=== PATIENT | female | born 1995 | race Two or more races ===

== ENCOUNTER 2019-09-20 20:48 | Emergency (ER) | payer SELFPAY ==
[2019-09-20] MEDS ORDERED: ACETAMINOPHEN 325 MG TABLET PO ONE (23:38)
--- NOTE | 2019-09-20 23:41 | ER Document Report ---
ED Medical Screen (RME) - General Chief Complaint: Hand Injury Stated Complaint: RIGHT HAND INJURY Time Seen by Provider: 09/20/19 23:37 Mode of Arrival: Ambulatory Information source: Patient Notes: Otherwise healthy 23-year-old female presenting to the emergency department chief complaint of right hand pain. Patient reports she punched a wall just prior to arrival. Patient did not bother to take any Tylenol or ibuprofen prior to coming to the emergency department for evaluation. Exam: Slight swelling noted, ecchymosis and abrasions noted over the fourth fifth metacarpal area. Cap refill less than 3 seconds, normal sensation distally. I have greeted and performed a rapid initial assessment of this patient. A comprehensive ED assessment and evaluation of the patient, analysis of test results and completion of the medical decision making process will be conducted by additional ED providers. I have specifically instructed the patient or family members with the patient to immediately return to any nursing staff should anything change in the patient's condition or with their chief complaint. TRAVEL OUTSIDE OF THE [place] IN LAST 30 DAYS: No Physical Exam - Vital signs Vitals: Temp Pulse Resp BP Pulse Ox 99.4 F 106 H 16 124/72 97 09/20/19 20:58 09/20/19 20:58 09/20/19 20:58 09/20/19 20:58 09/20/19 20:58 Course - Vital Signs Vital signs: Temp Pulse Resp BP Pulse Ox 99.4 F 106 H 16 124/72 97 09/20/19 20:58 09/20/19 20:58 09/20/19 20:58 09/20/19 20:58 09/20/19 20:58
--- NOTE | 2019-09-21 00:12 | RADIOLOGY REPORT (SQ) ---
EXAM DESCRIPTION: XR HAND 3 OR MORE VIEWS COMPLETED DATE/TME: 09/20/2019 23:37 CLINICAL HISTORY: 23 years, Female, bone pain COMPARISON: None. NUMBER OF VIEWS: 3 TECHNIQUE: 3 view right hand LIMITATIONS: None. FINDINGS: Negative for fracture or dislocation. Soft tissues are unremarkable IMPRESSION: Negative exam copyright 2011 [employer]- All Rights Reserved
--- NOTE | 2019-09-21 00:31 | ER Document Report ---
HPI - HPI Time Seen by Provider: 09/20/19 23:37 Pain Level: 5 Notes: Otherwise healthy 23-year-old female presenting to the emergency department with complaints of right hand pain. Patient reports she punched a fixed object a few hours prior to arrival. She has not taken any medications for this. - REPRODUCTIVE LMP: current Reproductive: DENIES: : Past Medical History - General Information source: Patient - Social History Smoking Status: Former Smoker Family History: Reviewed & Not Pertinent Patient has suicidal ideation: No Patient has homicidal ideation: No - Medical History Medical History: Negative Surgical Hx: Negative Vertical Provider Document - CONSTITUTIONAL Notes: PHYSICAL EXAMINATION: GENERAL: Well-appearing, well-nourished and in no acute distress. HEAD: Atraumatic, normocephalic. EYES: Pupils equal round extraocular movements intact, conjunctiva are normal. ENT: Nares patent NECK: Normal range of motion LUNGS: No respiratory distress Musculoskeletal: Normal range of motion, swelling and ecchymosis noted to right hand over the fourth and fifth metacarpals. Strong radial pulse, cap refill less than 3 seconds. NEUROLOGICAL: Normal speech, normal gait. PSYCH: Normal mood, normal affect. SKIN: Warm, Dry, normal turgor, no rashes or lesions noted. - INFECTION CONTROL TRAVEL OUTSIDE OF THE [place] IN LAST 30 DAYS: No Course - Re-evaluation Re-evalutation: X-ray negative for any fracture. Patient will be discharged home in stable condition. Patient encouraged to take ibuprofen, ice and elevate the extremity. Patient verbalized understanding and agreement with this plan. - Vital Signs Vital signs: Temp Pulse Resp BP Pulse Ox 99.4 F 106 H 16 124/72 97 09/20/19 20:58 09/20/19 20:58 09/20/19 20:58 09/20/19 20:58 09/20/19 20:58 Discharge - Discharge Clinical Impression: Contusion of right hand Qualifiers: Encounter type: initial encounter Qualified Code(s): S60.221A - Contusion of right hand, initial encounter Condition: Stable Disposition: HOME, SELF-CARE Additional Instructions: Contusion Your injury has resulted in a contusion -- a crushing of the deep tissues. No injury to important structures was detected during the physician's exam. Contusions vary in the amount of pain they cause, and in the length of time required for healing. Typically, the area will become bruised, and will remain painful to touch for two or three weeks. However, most patients are back to working and playing within a few days. After the initial period of rest and cold-packs, your symptoms (together with the doctor's recommendations) will determine how rapidly you can get back to full activity. Usually this means "do what feels okay, but don't do things that hurt." If re-examination was recommended, it's important to follow up as instructed. Call the doctor or return any time if pain increases, if swelling becomes severe, if you develop numbness or weakness in an injured extremity, or if any other alarming symptoms occur. Ice & Elevation Apply ice packs frequently against the painful area. Many different schedules are recommended, such as "20 minutes on, 20 minutes off" or "one hour ice, two hours rest." If you need to work, you may need to go longer between ice treatments. You should plan to have the area ice packed AT LEAST one-fourth of the time. The ice should be applied over the wrap, tape, or splint, or over a layer of cloth -- not directly against the skin. Some ice bags have a built-in cloth and can be put directly on the skin. Your injured part should be elevated as much as possible over the next 48 hours. Try to keep the injury above the level of the heart. Avoid use of the injured area. Elevation and rest will decrease the swelling. Ibuprofen Ibuprofen is an excellent, safe drug for pain control. In addition, it has potent antiinflammatory effects which are beneficial, especially in the tr eatment of injuries, arthritis, or tendonitis. It's best to take ibuprofen with food. Persons with ulcer disease or allergy to aspirin should notify their physician of this before taking ibuprofen. Take the medication exactly as prescribed. Don't take additional doses unless instructed to do so by your doctor. If you develop wheezing, shortness of breath, hives, faintness, stomach pain, vomiting, or dark black stools, return for re-evaluation at once. The x-rays were negative for any fracture or dislocation. Please take ibuprofen [id number] as directed to help with pain and inflammation.
[2019-09-21 06:37] VITALS: BP 113/73
== END 2019-09-21 01:00 | disposition home or self-care (01) ==
LOC: ER 20:48
DX: S60.221A Contusion of right hand, initial encounter (principal); W22.09XA Striking against other stationary object, initial encounter
CPT/HCPCS: 99283

== ENCOUNTER 2020-04-04 21:55 | Emergency (ER) | payer MEDICAID, OTHER ==
[2020-04-04 22:05] VITALS: BP 127/73
--- NOTE | 2020-04-04 22:27 | ER Document Report ---
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 States it is so swollen she is unable to wear her hearing aid in the right ear. She denies any recent swimming or flying. No medications for symptoms. No fevers. Associated Symptoms: None Exacerbated by: Denies Relieved by: Denies Similar symptoms previously: No Recently seen / treated by doctor: No - ROS Systems Reviewed and Negative: Yes All other systems reviewed and negative - CONSTITUTIONAL Constitutional: DENIES: Fever - EENT EENT: REPORTS: Ear Pain. DENIES: Sore Throat, Nasal Drainage-Clear, Nasal Drainage-Purulent, Congestion - NEURO Neurology: DENIES: Headache - RESPIRATORY Respiratory: DENIES: Trouble Breathing - GASTROINTESTINAL Gastrointestinal: DENIES: Abdominal Pain, Nausea, Patient vomiting - REPRODUCTIVE Reproductive: DENIES: : - DERM Skin Color: Normal, [place] Skin Problems: None Past Medical History - General Information source: Patient - Social History Smoking Status: Never Smoker Frequency of alcohol use: None Drug Abuse: None Family History: Reviewed & Not Pertinent Vertical Provider Document - CONSTITUTIONAL Agree With Documented VS: Yes Exam Limitations: No Limitations General Appearance: Mild Distress - INFECTION CONTROL TRAVEL OUTSIDE OF THE [place] IN LAST 30 DAYS: No - HEENT HEENT: Atraumatic, Normocephalic, Tympanic Membrane Red, Tympanic Membrane Bulging - Right tympanic membrane is erythematous and bulging. Right outer ear canal with erythema and swelling no discharge noted. Left tympanic membrane intact without erythema or bulging. Left outer ear canal without erythema or swelling.. negative: Pharyngeal Exudate, Pharyngeal Tenderness, Pharyngeal Erythema - NECK Neck: Normal Inspection, Supple, Thyroid Normal. negative: Lymphadenopathy- Right - RESPIRATORY Respiratory: Breath Sounds Normal, No Respiratory Distress - CARDIOVASCULAR Cardiovascular: Regular Rate, Regular Rhythm, No Murmur - MUSCULOSKELETAL/EXTREMETIES Musculoskeletal/Extremeties: FROM - NEURO Level of Consciousness: Awake, Alert - DERM Integumentary: Warm, Dry, No Rash Course - Re-evaluation Re-evalutation: 04/04/20 22:35 Reviewed diagnosis with patient. Counseled to take antibiotics and use eardrops as prescribed. Recheck with a primary care physician in 1 week. On-call physician was provided. Can take Tylenol and or Motrin as needed for pain. Patient was given strict return to the emergency room guidelines. Return for any new or worsening symptoms. All questions were answered. Patient verbalized understanding and agrees with plan of care. - Vital Signs Vital signs: Temp Pulse Resp BP Pulse Ox 99.4 F 104 H 16 127/73 H 97 04/04/20 22:03 04/04/20 22:03 04/04/20 22:03 04/04/20 22:03 04/04/20 22:03 Discharge - Discharge Clinical Impression: Right otitis media Qualifiers: Otitis media type: unspecified Qualified Code(s): H66.91 - Otitis media, unspecified, right ear Right otitis externa Qualifiers: Otitis externa type: unspecified type Chronicity: acute Qualified Code(s): H60.501 - Unspecified acute noninfective otitis externa, right ear Condition: Stable Disposition: HOME, SELF-CARE Instructions: Use of Ear Drops ([facility]), Otitis Externa ([facility]), Otitis Media ([facility]) Additional Instructions: Use eardrops and take oral antibiotics as prescribed. Tylenol and or Motrin as needed for pain. Follow-up with a primary care physician for recheck in 1 week. Return for any new or worsening symptoms. Prescriptions: Amoxicillin 1 tab PO TID #30 tab Neomy Sulf/Polymyx B Sulf/Hc [Cortisporin Otic Susp] 4 drop RT_EAR QID 7 Days #1 bottle Referrals: FRANK CASTRO MD [COMMUNITY BASED STAFF] - Follow up in 1 week (Call for recheck appointment in 1 week.)
== END 2020-04-04 22:40 | disposition home or self-care (01) ==
LOC: ER 21:55
DX: H66.91 Otitis media, unspecified, right ear (principal); H60.501 Unspecified acute noninfective otitis externa, right ear; H92.01 Otalgia, right ear
CPT/HCPCS: 99282

== ENCOUNTER 2020-05-28 10:18 | Emergency (ER) | payer MEDICAID ==
[2020-05-28 10:24] VITALS: BP 121/74
[2020-05-28] MEDS ORDERED: LIDOCAINE 2% VISCOUS SOLN 15 ML UDCUP PO ONE (10:30)
[2020-05-28] MEDS ORDERED: PENICILLIN V POTASSIUM 500 MG TABLET PO ONE (10:30)
--- NOTE | 2020-05-28 10:36 | ER Document Report ---
HPI - HPI Patient complains to provider of: tongue injury Time Seen by Provider: 05/28/20 10:30 Onset: Yesterday Onset/Duration: Worse Quality of pain: Achy Pain Level: 4 Context: Patient states she had dental work performed yesterday and the dentist accidentally slipped injuring her tongue. Patient complains of tender wound to the lateral side of her tongue. Patient without any fever. Associated Symptoms: Other - Mouth pain. denies: Fever Exacerbated by: Food Relieved by: Denies Similar symptoms previously: No Recently seen / treated by doctor: Yes - ROS ROS below otherwise negative: Yes Systems Reviewed and Negative: Yes All other systems reviewed and negative - CONSTITUTIONAL Constitutional: DENIES: Fever, Chills - EENT Notes: Wound to tongue - GASTROINTESTINAL Gastrointestinal: DENIES: Nausea, Patient vomiting - REPRODUCTIVE Reproductive: DENIES: : - DERM Skin Color: Normal Past Medical History - General Information source: Patient - Social History Smoking Status: Never Smoker Frequency of alcohol use: None Drug Abuse: None Occupation: Foodservice Family History: Reviewed & Not Pertinent - Medical History Medical History: Negative Surgical Hx: Negative Vertical Provider Document - CONSTITUTIONAL Agree With Documented VS: Yes Exam Limitations: No Limitations General Appearance: WD/WN, No Apparent Distress - INFECTION CONTROL TRAVEL OUTSIDE OF THE [place] IN LAST 30 DAYS: No - HEENT HEENT: Atraumatic, Normocephalic Mouth Diagram: 1 - Wound to lateral side of tongue, no obvious swelling or purulent drainage, areas of skin white in appearance - NECK Neck: Normal Inspection, Supple. negative: Lymphadenopathy-Left, Lymphadenopathy-Right - RESPIRATORY Respiratory: Breath Sounds Normal, No Respiratory Distress - CARDIOVASCULAR Cardiovascular: Regular Rate, Regular Rhythm - BACK Back: Normal Inspection - MUSCULOSKELETAL/EXTREMETIES Musculoskeletal/Extremeties: MAEW - NEURO Level of Consciousness: Awake, Alert, Appropriate Motor/Sensory: No Motor Deficit - DERM Integumentary: Warm, Dry Course - Re-evaluation Re-evalutation: 05/28/20 10:36 Patient with oral injury to the lateral side of her tongue. No potential airway compromise. Wound does not require suturing at this time. Encouraged good oral hygiene and diet modification. Discussed worsening symptoms that patient should return immediately for. Patient verbalized understanding and is agreeable with discharge plan of care. - Vital Signs Vital signs: Temp Pulse Resp BP Pulse Ox 98.2 F 97 18 121/74 97 05/28/20 10:23 05/28/20 10:23 05/28/20 10:23 05/28/20 10:23 05/28/20 10:23 Discharge - Discharge Clinical Impression: Tongue sore Condition: Stable Disposition: HOME, SELF-CARE Instructions: Oral Laceration, Not Sutured ([facility]), Penicillin V K ([facility]) Additional Instructions: Return immediately for any new or worsening symptoms Followup with your primary care provider, call tomorrow to make a followup appointment Rinse mouth out after meals Use Orajel or other over the counter topical anesthetic as needed to help with pain symptoms Prescriptions: Naproxen [Naprosyn 250 Nmg Tablet] 1 tab PO BID #14 tablet Penicillin V Potassium [Penicillin Vk 500 mg Tablet] 500 mg PO BID #20 tablet Forms: Return to Work Referrals: [facility] [Provider Group] - Follow up as needed [facility] [Provider Group] - Follow up as needed
== END 2020-05-28 10:46 | disposition home or self-care (01) ==
LOC: ER 10:18
DX: S09.93XA Unspecified injury of face, initial encounter (principal); W22.8XXA Striking against or struck by other objects, initial encounter; Y92.531 Health care provider office as the place of occurrence of the external cause
CPT/HCPCS: 99283; J3490 ×2

== ENCOUNTER 2020-06-16 15:24 | Emergency (ER) | payer MEDICAID ==
--- NOTE | 2020-06-16 15:52 | ER Document Report ---
HPI - HPI Patient complains to provider of: Left ear pain, right hand pain Time Seen by Provider: 06/16/20 15:42 Pain Level: 3 Context: 24-year-old female presents to the emergency room complaining of left ear pain that started yesterday. States she had a tooth pulled a month ago in the left upper posterior molar states she was on antibiotics at that time and is not sure if she still having referred pain from the dental extraction or if she has an ear infection. She denies any recent swimming or flying. Not taking anything for the pain. Patient also complaining of right hand pain after punching a wall 2 days ago. Patient states she fractured her hand about a year ago. Has not taken any pain medication for hand. Patient is right-handed. She denies any chance of . Associated Symptoms: None Exacerbated by: Movement Relieved by: Remaining still Similar symptoms previously: Yes - Previous right hand fracture a year ago Recently seen / treated by doctor: No - ROS Systems Reviewed and Negative: Yes All other systems reviewed and negative - CONSTITUTIONAL Constitutional: DENIES: Fever - EENT EENT: REPORTS: Ear Pain - NEURO Neurology: DENIES: Weakness - REPRODUCTIVE LMP: [id number] Reproductive: DENIES: : - MUSCULOSKELETAL Musculoskeletal: REPORTS: Extremity pain - DERM Skin Color: Normal Skin Problems: None Past Medical History - General Information source: Patient - Social History Smoking Status: Never Smoker Chew tobacco use (# tins/day): No Drug Abuse: None Family History: Reviewed & Not Pertinent Patient has homicidal ideation: No Vertical Provider Document - CONSTITUTIONAL Agree With Documented VS: Yes Exam Limitations: No Limitations General Appearance: Mild Distress - INFECTION CONTROL TRAVEL OUTSIDE OF THE [place] IN LAST 30 DAYS: No - HEENT HEENT: Atraumatic, Normocephalic, Tympanic Membrane Red, Tympanic Membrane Bulging - Left tympanic membrane erythematous and bulging. Left outer ear canal without erythema swelling. Right tympanic membrane is intact. Right outer ear canal without erythema or swelling. Left upper posterior gum without erythema or swelling. Nontender to palpation. There is no abscess noted. - NECK Neck: Normal Inspection, Supple, Thyroid Normal - RESPIRATORY Respiratory: Breath Sounds Normal, No Respiratory Distress, Chest Non-Tender - CARDIOVASCULAR Cardiovascular: Regular Rate, Regular Rhythm, No Murmur - MUSCULOSKELETAL/EXTREMETIES Musculoskeletal/Extremeties: FROM, Tender - Tenderness over the knuckle of the right index finger. Ecchymosis noted. No obvious deformity palpated noted senior ui ux developer strength equal and adequate bilaterally. - NEURO Level of Consciousness: Awake, Alert, Appropriate Motor/Sensory: No Motor Deficit, No Sensory Deficit Notes: Positive right radial pulse. Capillary refill less than 3 seconds. Normal sensation to touch. - DERM Integumentary: Warm, Dry, No Rash Course - Re-evaluation Re-evalutation: 06/16/20 16:44 Reviewed negative x-ray results with patient. Discussed the positive findings of a left otitis media. Will be discharged home on antibiotics. Can take Tylenol and or Motrin as needed for her right hand and left ear pain. Outpatient follow-up with a primary care physician if not improving in 2 to 3 days. On-call physician was provided. Patient was given strict return to the emergency room guidelines. Return for any new or worsening symptoms. All questions were answered. Patient verbalized understanding and agrees with plan of care. 06/16/20 18:04 - Diagnostic Test Radiology reviewed: Reports reviewed Discharge - Discharge Clinical Impression: Left otitis media Qualifiers: Otitis media type: unspecified Qualified Code(s): H66.92 - Otitis media, unspecified, left ear Contusion of right hand Qualifiers: Encounter type: initial encounter Qualified Code(s): S60.221A - Contusion of right hand, initial encounter Condition: Stable Disposition: HOME, SELF-CARE Instructions: Contusion ([facility]), Otitis Media ([facility]) Additional Instructions: Antibiotics as prescribed. Tylenol and/or Motrin as needed for pain. Outpatient follow-up with a primary care physician if not improving in 2 to 3 days. Return to the emergency room for any new or worsening symptoms. Prescriptions: Amoxicillin 1 tab PO TID #30 tab Referrals: ROHINI RICHARDSON MD [ACTIVE STAFF] - Follow up as needed
--- NOTE | 2020-06-16 16:34 | RADIOLOGY REPORT (SQ) ---
EXAM DESCRIPTION: HAND RIGHT 3 VIEWS IMAGES COMPLETED DATE/TIME: 06/16/2020 4:25 pm REASON FOR STUDY: The patient punched a wall Jeyson now with hand pain. COMPARISON: 09/20/2019 EXAM PARAMETERS: NUMBER OF VIEWS: Three views. TECHNIQUE: AP, lateral and oblique radiographic images acquired of the right hand. LIMITATIONS: None. FINDINGS: MINERALIZATION: Normal. BONES: No acute fracture or dislocation. No worrisome bone lesions. JOINTS: No effusions. SOFT TISSUES: No soft tissue swelling. No foreign body. OTHER: No other significant finding. IMPRESSION: NEGATIVE STUDY OF THE RIGHT HAND. NO RADIOGRAPHIC EVIDENCE OF ACUTE INJURY. TECHNICAL DOCUMENTATION: JOB ID: [id number] 2010 [employer]- All Rights Reserved Reading location - IP/workstation name: [email or web address]
[2020-06-16 17:07] VITALS: BP 112/73
== END 2020-06-16 17:08 | disposition home or self-care (01) ==
LOC: ER 15:24
DX: H66.92 Otitis media, unspecified, left ear (principal); S60.221A Contusion of right hand, initial encounter; W22.01XA Walked into wall, initial encounter
CPT/HCPCS: 99283

== ENCOUNTER 2020-08-28 14:21 | Emergency (ER) | payer MEDICAID ==
[2020-08-28 15:46] LABS: APPEARANCE,URINE CLOUDY; BILIRUBIN,URINE NEGATIVE (NEGATIVE); COLOR,URINE YELLOW; GLUCOSE, URINE NEGATIVE (NEGATIVE); KETONES,URINE NEGATIVE (NEGATIVE); LEUKOCYTE ESTERASE,URINE LARGE (NEGATIVE); NITRITE,URINE POSITIVE (NEGATIVE); PROTEIN,URINE 100 mg/dL (NEGATIVE); URINE SPECIFIC GRAVITY 1.021; UROBILINOGEN,URINE NEGATIVE mg/dL (<2.0)
[2020-08-28 17:10] VITALS: BP 110/78
--- NOTE | 2020-08-28 17:10 | ER Document Report ---
ED General - General Chief Complaint: Pain With Urination Stated Complaint: PAINFUL URINATION/ CHECK Time Seen by Provider: 08/28/20 15:09 TRAVEL OUTSIDE OF THE [place] IN LAST 30 DAYS: No - HPI Notes: Patient is a 24-year-old female with no medical history who presents with dysuria and urinary frequency that began today. She reports lower abdominal pain but denies flank pain, nausea, vomiting, and fever. She denies vaginal bleeding and vaginal discharge. She has not taken anything for pain. - Related Data Allergies/Adverse Reactions: No Known Allergies Allergy (Verified 08/28/20 14:59) Past Medical History - General Information source: Patient - Social History Smoking Status: Never Smoker Chew tobacco use (# tins/day): No Frequency of alcohol use: Occasional Drug Abuse: None Family History: Reviewed & Not Pertinent Patient has homicidal ideation: No Review of Systems - Review of Systems Constitutional: No symptoms reported EENT: No symptoms reported Cardiovascular: No symptoms reported Respiratory: No symptoms reported Gastrointestinal: No symptoms reported Genitourinary: See HPI Female Genitourinary: No symptoms reported Musculoskeletal: No symptoms reported Skin: No symptoms reported Hematologic/Lymphatic: No symptoms reported Neurological/Psychological: No symptoms reported Physical Exam - Vital signs Vitals: Temp Pulse Resp BP Pulse Ox 98.3 F 88 16 124/71 97 08/28/20 14:26 08/28/20 14:26 08/28/20 14:26 08/28/20 14:26 08/28/20 14:26 - Notes Notes: PHYSICAL EXAMINATION: VITALS: Vitals reviewed and within normal limits. GENERAL: Well-appearing, well-nourished and in no acute distress. HEAD: Atraumatic, normocephalic. LUNGS: Breath sounds clear to auscultation bilaterally and equal. No wheezes rales or rhonchi. HEART: Regular rate and rhythm without murmurs. ABDOMEN: Soft, nontender, normoactive bowel sounds. No guarding, no rebound. No masses appreciated. No CVA tenderness. PSYCH: Normal mood, normal affect. SKIN: Warm, Dry, normal turgor, no rashes or lesions noted. Course - Re-evaluation Re-evalutation: Patient presents with symptoms consistent with an acute cystitis. Vitals wnl. No history of fever, flank pain, or constitution symptoms to suggest ascending infection at this time. Patient is well in appearance, tolerating oral intake without difficulty. No focal abdominal tenderness to suggest acute appendicitis, biliary pathology, acute pancreatitis, tubo-ovarian abscesses, or pelvic inflammatory disease. Patient will be started on antibiotics at this time. A culture has been sent. They will be discharged with return precautions and follow-up recommendations. - Vital Signs Vital signs: Temp Pulse Resp BP Pulse Ox 98.3 F 88 16 124/71 97 08/28/20 14:26 08/28/20 14:26 08/28/20 14:26 08/28/20 14:26 08/28/20 14:26 - Laboratory Laboratory results interpreted by ia: 08/28/20 15:20 Urine Protein 100 H Urine Blood SMALL H Urine Nitrite POSITIVE H Ur Leukocyte Esterase LARGE H Discharge - Discharge Clinical Impression: Dysuria Urinary tract infection Qualifiers: Urinary tract infection type: acute cystitis Hematuria presence: with hematuria Qualified Code(s): N30.01 - Acute cystitis with hematuria Condition: Stable Disposition: HOME, SELF-CARE Instructions: Urinary Tract Infection ([facility]), Cephalexin ([facility]) Prescriptions: Cephalexin Monohydrate [Keflex 500 mg Capsule] 500 mg PO BID 7 Days #14 capsule Referrals: [facility] [Provider Group] - Follow up as needed
== END 2020-08-28 17:09 | disposition home or self-care (01) ==
LOC: ER 14:21
DX: N30.01 Acute cystitis with hematuria (principal)
CPT/HCPCS: 81001; 87086; 87088; 87186; 99283